=== PATIENT | female | born 1935 | race Caucasian/White ===

== ENCOUNTER 2017-07-07 09:24 | Emergency (ER) | payer MEDICARE, OTHER ==
[2017-07-07] MEDS ORDERED: Adacel (T-DAP) 0.5 ML VIAL ONE (09:51)
--- NOTE | 2017-07-07 11:08 | RAD ---
LEFT KNEE 4 VIEWS: Date: 07/07/17 HISTORY: Fall. COMPARISON: None. FINDINGS: Constrained left knee arthroplasty in place. The proximal femoral stem and distal tibial stem are not well evaluated. IMPRESSION: No evidence for hardware failure, although the proximal femoral stem and distal tibial stem are not w ell interrogated. POS: OFF
== END 2017-07-07 11:40 | disposition home or self-care (01) ==
LOC: ERS 09:24
DX: S81.012A Laceration without foreign body, left knee, initial encounter (principal); Z79.899 Other long term (current) drug therapy; Z79.01 Long term (current) use of anticoagulants; Z23 Encounter for immunization; W01.0XXA Fall on same level from slipping, tripping and stumbling without subsequent striking against object, initial encounter
CPT/HCPCS: 90471; 90715

== ENCOUNTER 2018-11-02 10:11 | Inpatient (IN) | payer MEDICARE, OTHER ==
[2018-11-02 10:48] LABS: INR-International Normal Ratio 1.6; PTT 33.3 SEC (22.9-36.1); Prothrombin Time 19.2 SEC (12.0-14.7)
[2018-11-02 10:49] LABS: #Basophils 0.1 thou/uL (0.0-0.2); #Eosinphils 0.2 thou/uL (0.0-0.7); #Lymphocytes 1.1 thou/uL (1.20-3.40); #Monocytes 0.4 thou/uL (0.11-0.59); #Neutrophils 3.6 thou/uL (1.40-6.50); %Basophils 1.1 % (0.0-1.0); %Eosinophils 3.1 % (0.0-10.0); %Lymphocytes 20.6 % (21.0-51.0); %Monocytes 7.9 % (0.0-10.0); %Neutrophils 67.4 % (42.0-75.0); Hemoglobin 7.4 g/dL (12.0-16.0); Mean Corpuscular HGB CONC 31.7 g/dL (32.0-36.0); Mean Corpuscular Hemoglobin 25.2 pg (27.0-31.0); Mean Corpuscular Volume 79.5 fL (78.0-98.0); Mean Platelet Volume 8.3 fL (7.4-10.4); Platelet Count 347 thou/uL (130-400); RBC Distribution Width 15.3 % (11.5-14.5); Red Blood Cell (RBC) Count 2.91 mill/uL (4.20-5.40); White Blood Cell (WBC) Count 5.3 thou/uL (4.8-10.8)
[2018-11-02 11:01] LABS: ALT (SGPT) 7 U/L (8-55); AST (SGOT) 15 U/L (5-34); Alkaline Phosphatase 69 U/L (40-150); Anion Gap 14 mmol/L (10-20); BUN (Urea Nitrogen) 22 mg/dL (9.8-20.1); Bilirubin, Total 0.4 mg/dL (0.2-1.2); Calc. Creatinine Clearance 0 mL/min (70-130); Calcium 9.7 mg/dL (7.8-10.44); Carbon Dioxide 22 mmol/L (23-31); Chloride 103 mmol/L (98-107); Estimated GFR-MDRD 42; Globulin 2.9 g/dL (2.4-3.5); Glucose 140 mg/dL (83-110); Potassium 4.3 mmol/L (3.5-5.1); Protein, Total 6.9 g/dL (6.0-8.3); Sodium 135 mmol/L (136-145)
[2018-11-02 11:02] LABS: Hypochromia SLIGHT = 6-15 cells (100X) (0-5/hpf); MDiff Complete? YES; Microcytosis SLIGHT = 6-15 cells (100X) (0-5/hpf); Platelet Morphology Comment Appears Adequate; Polychromasia SLIGHT = 2-3 cells (100X) (0-2/hpf)
--- NOTE | 2018-11-02 13:38 | HP ---
PRIMARY CARE PHYSICIAN: Ric Hayes MD Referred to [facility] by [facility] for symptomatic anemia. For the past couple of weeks, the patient has been dizzy and lightheaded. At times, she seemed to be going to pass out. Family states she almost fainted a couple of times while on the commode. There is no history of melena. No history of blood in her stools. No history of hematemesis. She is on chronic anticoagulations. She is ambulatory with a walker. 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 She has had recurrent deep vein thromboses, and has had inferior vena cava filter put in 1996, 2000 and 2009. She is on chronic anticoagulation. She has history of asthma and edema. CURRENT MEDICATIONS: 1. Albuterol 1 or 2 puffs before meals. 2. Tessalon Perles 100 mg p.o. q.8 hours p.r.n. 3. Spironolactone 25 mg p.o. t.i.d. 4. Warfarin 5 to 7 mg once a day in the morning. 5. Levothyroxine 75 mcg a day. 6. Prilosec OTC 20 mg a day. 7. MiraLAX 17 g in water at bedtime. 8. Some other [id number] medicines. ALLERGIES: CASEY, CODEINE, MORPHINE, AND SULFA. SHE HAD NEAR HEPATIC FAILURE FROM A DRUG CALLED AXID. PAST SURGICAL HISTORY: She has had hysterectomy, cholecystectomy, left total knee replacement, right total hip replacement surgery x3, and the aforementioned IVC filters. FAMILY HISTORY: Mother and father of old age. They both had type 2 diabetes late in life and the father had coronary artery disease. SOCIAL HISTORY: She is , at bedside, DNAR status, confirmed with him. She has a medical directive, he is the power of terrazzo grinder. No tobacco. No alcohol. REVIEW OF SYSTEMS: GENERAL: No fever or chills. EYES: She has cataracts, gives no specific complaints. EAR, NOSE, AND THROAT: No history of ear pain or bleeding or trouble swallowing. CARDIAC: No history of chest pain, orthopnea or paroxysmal nocturnal dyspnea. RESPIRATIONS: She has mild cough, especially when eating. No wheezing. GASTROINTESTINAL: No nausea, vomiting, abdominal pain, diarrhea or melena. GENITOURINARY: No hematuria or dysuria. MUSCULOSKELETAL: Occasional swelling in her legs, mild. Takes spironolactone for same. No muscle complaints. NEUROLOGICAL: Hemianesthesia on the right, aphasia. PSYCHIATRIC: No anxiety or depression. SKIN: Easy bruising. No rash. HEME/LYMPH: No tender or swollen lymph nodes noted by the family. PHYSICAL EXAMINATION: GENERAL: She is alert, pleasant lady, unable to understand or to express herself. VITAL SIGNS: Blood pressure 134/60, pulse 69, respirations 20, and temperature 97.8. HEAD, EYES, EARS, NOSE, AND THROAT: Pupils equal, round with cataracts, reactive. Extraocular movements grossly intact. Tympanic membranes clear. Nose clear. Oral mucous membranes are damp. NECK: Supple. No jugular venous distention, adenopathy or thyromegaly. CHEST: Clear to auscultation and percussion. HEART: Regular rate and rhythm. First and second heart sounds are clear. There are no appreciated murmurs or gallops. ABDOMEN: Soft. Bowel sounds are normal. No hepatosplenomegaly. No masses. No rebound. Bowel sounds present. EXTREMITIES: Trace edema. No cyanosis or clubbing. SKIN: Some minor ecchymoses on her arms. No rash. PULSES: Carotid, radial, femoral, and dorsalis pedis pulses intact and symmetric. HEME/LYMPH: No tender or swollen lymph nodes in axilla, inguinal or cervical area. NEUROLOGICAL: Cranial nerves 2 through 12 are intact, aphasic. Deep tendon reflexes symmetric. Sensation decreased on the right compared to the left. Toes downgoing. DIAGNOSTIC DATA: Chest x-ray, none available. I have ordered one. EKG, regular sinus rhythm, poor R wave progression in the precordial leads, otherwise normal, reviewed by me. LABORATORY DATA: INR is only 1.6. Comp metabolic profile; sodium 135, potassium 4.3, BUN 22, creatinine 1.23, and blood sugar 140. Liver function test unremarkable. CBC; hemoglobin in the outside office 7.1, hemoglobin here 7.4. The MCH and MCHC are low consistent with iron deficiency. Platelet count 247,000. ADMITTING DIAGNOSES: Anemia, symptomatic, chronic anticoagulation; recurrent deep vein thrombosis; post cerebrovascular accident; aphasic; edema. PLAN: 1. Serial hemoglobins q.6 hours. 2. Transfuse for hemoglobin less than 7. Emergency room physician has already started transfusion with a unit of blood at this time. 3. Protonix IV. 4. GI consult for possible endoscopy. The family has expressed some aversion to actually doing this, but I think it would be valuable to have Gastroenterology talk with them. For the time being, I am holding the Coumadin. Daily PT/INR, iron, iron binding capacity, ferritin, and vitamin B12 levels have been ordered. 5. Patient will require at least two overnights. severe anemia, anticoagulation , etc requires more than simple transfusion and outpatient [facility]. Job ID: [id number] [facility]
[2018-11-02] MEDS ORDERED: Ondansetron ODT 4 MG TAB PO PRN (13:58)
[2018-11-02] MEDS ORDERED: Acetaminophen 325 MG TAB PO PRN (13:58)
[2018-11-02] MEDS ORDERED: Zolpidem Tartrate 5 MG TAB PO PRN (13:58)
[2018-11-02] MEDS ORDERED: Sodium Chloride 0.9% (PF) 10 ML VIAL FS PRN (14:23)
[2018-11-02] MEDS ORDERED: Pantoprazole 40 MG VIAL IVP SCH (14:30)
--- NOTE | 2018-11-02 16:24 | RAD ---
RADIOGRAPH CHEST 1 VIEW: 11/02/18 HISTORY: 83-year-old female with anemia. FINDINGS: The thoracic aorta is tortuous and ectatic. There is no evidence of air space density, pneumothorax, or pulmonary edema. The lateral costophrenic angles are sharp. There is heterogeneous attenuation o f the retrocardiac portion of the left lower chest. IMPRESSION: 1) No acute pulmonary findings. 2) Ectasia of thoracic aorta. 3) Questionable hiatal hernia. jn [] POS: C
[2018-11-02 16:34] LABS: Iron Binding Capacity, Total 331 mcg/dL (265-497)
[2018-11-02 16:35] LABS: Iron 20 ug/dL (50-170)
[2018-11-02 16:54] LABS: Ferritin 13.65 ng/mL (10-291); Free Thyroxine Index 2.44 (1.4-3.1); T4 7.2 ug/dL (4.87-11.72); Thyroid Stimulating Hormone 1.3914 uIU/mL (0.35-4.94)
[2018-11-02 19:38] VITALS: BMI 35.0
[2018-11-02] MEDS: Sodium Chloride 0.9% 1,000 ML IV SCH (20:52)
[2018-11-03 00:02] LABS: #Basophils 0.1 thou/uL (0.0-0.2); #Eosinphils 0.2 thou/uL (0.0-0.7); #Lymphocytes 1.5 thou/uL (1.20-3.40); #Monocytes 0.8 thou/uL (0.11-0.59); #Neutrophils 3.9 thou/uL (1.40-6.50); %Basophils 0.8 % (0.0-1.0); %Eosinophils 3.3 % (0.0-10.0); %Lymphocytes 23.1 % (21.0-51.0); %Neutrophils 60.9 % (42.0-75.0); Hemoglobin 8.6 g/dL (12.0-16.0); Mean Corpuscular HGB CONC 31.3 g/dL (32.0-36.0); Mean Corpuscular Hemoglobin 25.5 pg (27.0-31.0); Mean Corpuscular Volume 81.6 fL (78.0-98.0); Mean Platelet Volume 8.1 fL (7.4-10.4); Platelet Count 323 thou/uL (130-400); Red Blood Cell (RBC) Count 3.36 mill/uL (4.20-5.40); White Blood Cell (WBC) Count 6.5 thou/uL (4.8-10.8)
--- NOTE | 2018-11-03 00:44 | CON ---
DATE OF CONSULTATION: 11/02/2018 REASON FOR CONSULTATION: Symptomatic anemia. CONSULTING PHYSICIAN: Teresa Mckinney MD. HISTORY OF PRESENT ILLNESS: The patient is an 83-year-old female with past medical history of recurrent DVT on anticoagulation, asthma, and a cerebral vascular accident in 2006 with transient right-sided weakness as well as apraxia, aphasia and right-sided hemianesthesia presenting with complaints of weakness. She states that she was in her usual state of health until approximately 2 weeks ago when she began to experience increased weakness primarily with exertion as well as increased dyspnea on exertion, being unable to traverse a room without having to stop and rest on her walker. Per family, they also state that she had a presyncopal event while defecating on the commode, but no overt loss of consciousness or passing out. Currently, she denies any nausea, vomiting, fevers, chills, hematemesis, melena, hematochezia, weight loss, odynophagia, diarrhea, or constipation. She does endorse some mild dysphagia primarily with ingestion of pills, but otherwise has been able to consume both solid and liquid foods without relative difficulty. REVIEW OF SYSTEMS: A 10-category review of systems was obtained with all responses negative except for the pertinent positives as listed in HPI. PAST MEDICAL HISTORY: As per HPI. PAST SURGICAL HISTORY: Hysterectomy, cholecystectomy, left total knee replacement, right total hip replacement x3, and IVC filter placement x3. FAMILY HISTORY: Denies any GI malignancies. No history of colon polyps or colon cancer. SOCIAL HISTORY: Denies any tobacco, alcohol, or illicit drug use. OUTPATIENT MEDICATIONS: Reviewed. ALLERGIES: CASEY, CODEINE, MORPHINE, SULFA AND AXID. PHYSICAL EXAMINATION: VITAL SIGNS: Temperature 98, pulse 74, blood pressure 122/59, respiratory rate 16, saturating 100% on room air. GENERAL: The patient was sitting in a chair at bedside, in no acute distress. Alert and oriented, although sensorium questions were difficult due to the patient's existing aphasia, but she was able to nod her head both affirmatively and negatively appropriately. HEENT: Normocephalic, atraumatic. NECK: Supple. No JVD or scleral icterus noted. CARDIOVASCULAR: Regular rate and rhythm with no discernible murmurs, gallops, or rubs. RESPIRATORY: Clear to auscultation bilaterally with no discernible wheezes or rales. ABDOMEN: Normoactive bowel sounds. Soft, nontender, nondistended. EXTREMITIES: No cyanosis, clubbing, or edema. LABORATORY DATA: CBC with a white blood cell count of 5.3, hemoglobin 7.4, hematocrit 23.2. INR 1.6. Platelets 347. Chemistry with a sodium of 135, potassium 4.3, chloride 103, CO2 of 22, BUN 22, creatinine 1.23, glucose 140, AST 15, ALT 7, alkaline phosphatase 69, total bilirubin 0.4, albumin 4.0, iron 20, ferritin 13.65, and TIBC of 331. IMAGING DATA: Chest x-ray obtained on November 02, 2018, showed no acute pulmonary findings, but did show ectasia of the thoracic aorta and a questionable hiatal hernia. ASSESSMENT AND PLAN: The patient is an 83-year-old female with past medical history of recurrent deep venous thrombosis on chronic anticoagulation, asthma, and a cerebrovascular accident in 2005 resulting in transient right-sided weakness, aphasia, apraxia and right-sided tomasa anesthesia presenting with symptomatic anemia. Symptomatic anemia. The patient is presenting with a relatively acute onset of increased weakness and dyspnea on exertion with decreased ability to ambulate around her house over the last 2 weeks. Upon evaluation within the ER today, she was noted to have a significantly decreased hemoglobin and hematocrit, but denies any evidence of overt GI bleeding or bleeding in general. Given her history of anticoagulation, this could potentially lead to bleeding from any mucosal surface, although upon conferring with the patient's , she does have a history of a gastric ulceration in the past that was performed "many years ago" which could be potentially contributing to her current clinical situation. At this point, the differential could include esophagitis, gastritis, peptic ulcer disease, arteriovenous malformation, Dieulafoy lesion, irritable bowel irritable bowel disease (less likely) and/or gastrointestinal neoplasm (less likely). Her last colonoscopy was around in 2009 with only findings of diverticulosis per patient's . RECOMMENDATIONS: 1. We would continue to trend H and H and transfuse as necessary to maintain an H and H of 7/. 2. Continue to monitor clinically for signs of active gastrointestinal bleeding. 3. Please make the patient n.p.o. at midnight in preparation for upper endoscopy tomorrow. A colonoscopy was offered to the patient, but she is declining to proceed with that particular modality at this time due to significant adverse effects in the past. 4. We will continue to follow. Please call with any questions. Job ID: [id number]
[2018-11-03] MEDS: Sodium Chloride 0.9% 1,000 ML IV SCH (01:45)
[2018-11-03 06:26] LABS: #Eosinphils 0.2 thou/uL (0.0-0.7); #Lymphocytes 1.1 thou/uL (1.20-3.40); #Monocytes 0.6 thou/uL (0.11-0.59); %Basophils 0.4 % (0.0-1.0); %Eosinophils 3.4 % (0.0-10.0); %Monocytes 10.1 % (0.0-10.0); %Neutrophils 67.2 % (42.0-75.0); Hemoglobin 8.3 g/dL (12.0-16.0); Mean Corpuscular HGB CONC 32.5 g/dL (32.0-36.0); Mean Corpuscular Hemoglobin 26.3 pg (27.0-31.0); Mean Corpuscular Volume 80.9 fL (78.0-98.0); Mean Platelet Volume 8.1 fL (7.4-10.4); Platelet Count 313 thou/uL (130-400); RBC Distribution Width 15.2 % (11.5-14.5); Red Blood Cell (RBC) Count 3.16 mill/uL (4.20-5.40); White Blood Cell (WBC) Count 5.9 thou/uL (4.8-10.8)
[2018-11-03 06:34] LABS: INR-International Normal Ratio 1.6; Prothrombin Time 19.3 SEC (12.0-14.7)
[2018-11-03 06:46] LABS: Anion Gap 13 mmol/L (10-20); BUN (Urea Nitrogen) 15 mg/dL (9.8-20.1); Calc. Creatinine Clearance 68 mL/min (70-130); Calcium 9.3 mg/dL (7.8-10.44); Carbon Dioxide 20 mmol/L (23-31); Chloride 108 mmol/L (98-107); Estimated GFR-MDRD 52; Glucose 111 mg/dL (83-110); Potassium 4.2 mmol/L (3.5-5.1); Sodium 137 mmol/L (136-145)
[2018-11-03] MEDS ORDERED: Pantoprazole 40 MG VIAL IVP SCH (09:00)
[2018-11-03] MEDS ORDERED: Ondansetron HCl/PF 4 MG/2 ML Vial IVP PRN (10:08)
[2018-11-03 12:42] LABS: #Eosinphils 0.1 thou/uL (0.0-0.7); #Lymphocytes 1.1 thou/uL (1.20-3.40); #Monocytes 0.6 thou/uL (0.11-0.59); #Neutrophils 4.1 thou/uL (1.40-6.50); %Basophils 0.8 % (0.0-1.0); %Eosinophils 1.9 % (0.0-10.0); %Lymphocytes 18.7 % (21.0-51.0); %Monocytes 10.7 % (0.0-10.0); Hemoglobin 9.3 g/dL (12.0-16.0); Mean Corpuscular HGB CONC 31.6 g/dL (32.0-36.0); Mean Corpuscular Hemoglobin 25.8 pg (27.0-31.0); Mean Corpuscular Volume 81.7 fL (78.0-98.0); Mean Platelet Volume 7.9 fL (7.4-10.4); Platelet Count 340 thou/uL (130-400); RBC Distribution Width 15.3 % (11.5-14.5); Red Blood Cell (RBC) Count 3.59 mill/uL (4.20-5.40)
--- NOTE | 2018-11-03 15:12 | PDOC.PN ---
- Subjective Encounter Start Date: 11/03/18 Encounter Start Time: 15:10 Ms. Paul was seen today in follow-up of pre-syncope. She does not have any complaints now. She wants to go home. She denies abdominal pain. - Objective Resuscitation Status - Order Detail: 11/02/18 12:35 Resuscitation Status Routine Resuscitation Status: DNAR: NO Resuscitation Discussed with: , has medical directive MAR Reviewed: Yes Vital Signs & Weight: Vital Signs (12 hours) Temp Pulse Resp BP BP Pulse Ox 11/03/18 10:45 97.5 F L 71 16 146/76 H 97 11/03/18 08:00 98.0 F 66 18 114/63 93 L 11/03/18 04:00 98.1 F 73 18 115/55 L 95 Weight Weight 223 lb 12.8 oz Most Recent Monitor Data Heart Rate from ECG 70 NIBP 144/74 I&O: 11/02/18 11/03/18 11/04/18 06:59 06:59 06:59 Intake Total 350 1520 Balance 350 1520 Result Diagrams: 11/03/18 12:35 11/03/18 06:13 Phys Exam - Physical Examination HEENT: PERRLA Respiratory: no wheezing, no rales, no rhonchi, clear to auscultation bilateral Cardiovascular: RRR, no significant murmur, no rub Gastrointestinal: soft, non-tender, no distention, positive bowel sounds Dx/Plan (1) Pre-syncope Status: Acute (2) DVT (deep venous thrombosis) Code(s): I82.409 - ACUTE EMBOLISM AND THOMBOS UNSP DEEP VN UNSP LOWER EXTREMITY Status: Chronic (3) CVA (cerebral vascular accident) Code(s): I63.9 - CEREBRAL INFARCTION, UNSPECIFIED Status: Chronic (4) Normocytic anemia Code(s): D64.9 - ANEMIA, UNSPECIFIED Status: Acute - Plan * Presyncope-this is presumed to be due to acute blood loss anemia- She had an EGD which did not idenitfy a source for bleed. She does not want a Colonoscopy. She is asking to go home * Discussed with Dr. Arenas. Can discharge home today with close outpatient follow-up. Will Hold coumadin for 48 hours from today * Stable for discharge home.
[2018-11-03 16:15] VITALS: BP 129/67; TEMP 97.8
--- NOTE | 2018-11-03 16:30 | OP ---
DATE OF PROCEDURE: 11/03/2018 INDICATION FOR PROCEDURE: Iron deficiency anemia, symptomatic anemia. PROCEDURE: Esophagogastroduodenoscopy with biopsy. DESCRIPTION OF PROCEDURE: After the risks and benefits of the procedure were explained to the patient including risks of bleeding, infection, perforation, reactions to anesthesia, aspiration and/or pain, informed consent was obtained via the patient's medical power of rn utilization management um (the patient's ) due to the patient's expressive aphasia. The patient was then taken to the endoscopy suite, where deep sedation was administered via propofol and anesthesia support. Once adequate sedation was achieved, the standard gastroscope was introduced into the mouth with intubation of the esophagus, stomach, and the proximal small intestine with the findings listed below. The patient tolerated the procedure well with no immediate perioperative complications. Upon conclusion of the procedure, all equipment was removed from the patient and she was transferred to PACU in satisfactory condition. FINDINGS: Esophagus: Normal-appearing mucosa was seen in the proximal, mid, and distal esophagus. The diaphragmatic pinch was seen at 44 cm while the GE junction was well seen at 35 cm denoting a 9 cm hiatal hernia. There were 3 linear areas of increased mucosal erythema, but no ulcerations seen consistent with Osvaldo ulcers. Otherwise, there was no evidence of erosions, ulcerations, mass, lesions, or active/recent bleeding. Stomach: Normal-appearing mucosa was seen in the gastric cardia, fundus, antrum, and incisura. Multiple kebede-colored polyps measuring between 2 mm to 6 mm in size were seen in the gastric body and along the greater curvature consistent with fundic gland polyps. Multiple biopsies were taken from these polyps as part of a vendor representatives sample to confirm the diagnosis. Otherwise, there was no evidence of erosions, ulcerations, mass, lesions, or active/recent bleeding. On gastric retroflexion, the large hiatal hernia was visualized again with 3 areas of linear erythema, but no evidence of overt ulceration or bleeding. Duodenum: Normal-appearing mucosa was seen in both the duodenal bulb and second portion of the duodenum. There was no evidence of erosions, ulcerations, mass, lesions, or active/recent bleeding. IMPRESSION: 1. Large hiatal hernia (9 cm) with 3 areas of linear erythema, but no evidence of Osvaldo ulcerations (based on this finding, this is likely not the source of her iron deficiency anemia). 2. Multiple kebede-colored polyps seen in the gastric body and extending into the greater curvature consistent with fundic gland polyps, and chronic acid suppression. 3. No etiology for the patient's anemia was seen during this examination. RECOMMENDATIONS: 1. We would continue to trend H and H and transfuse as necessary to maintain H and H of 12/24. 2. Continue to monitor clinically for signs of active GI bleeding. 3. Given the negative findings on the upper endoscopy today, I would normally recommend colonoscopy for further evaluation. However, given the patient's extreme reluctance to proceed with this modality, the patient could ultimately be discharged with followup in the outpatient clinic and a capsule endoscopy performed at that time for further evaluation. 4. Given her advanced age, I would consider other possible causes for iron deficiency anemia other than the GI origin. Given the patient is reluctant to proceed with colonoscopy and negative upper endoscopy findings today, we will sign off with the patient to follow up in the GI clinic if needed for capsule endoscopy. Please call with any additional questions. Job ID: [id number]
[2018-11-03] MEDS ORDERED: Albuterol Sulfate 2.5 mg/3 ml Neb NEB SCH (21:00)
--- NOTE | 2018-11-04 04:39 | DIS ---
DATE OF ADMISSION: 11/02/2018 DATE OF DISCHARGE: 11/03/2018 PRIMARY CARE PHYSICIAN: Ric Hayes MD. DISCHARGE DISPOSITION: Home. PRIMARY DISCHARGE DIAGNOSES: 1. Presyncope. 2. Normocytic anemia. 3. Cerebrovascular accident. 4. History of deep venous thrombosis, on chronic anticoagulation. DISCHARGE MEDICATIONS: Include; 1. Protonix 40 mg p.o. daily. 2. She is to continue warfarin 5 mg daily, but to restart this on November 05. Continue; 1. Spironolactone 25 mg t.i.d. 2. Levothyroxine 75 mcg p.o. daily. 3. Hyoscyamine 0.125 mg sublingual p.r.n. 4. Ventolin inhaler at bedtime. PROCEDURES DONE DURING THE ADMISSION: The patient had an EGD in which there is noted a gastric polyp as well as a hiatal hernia. CODE STATUS: DNAR. ALLERGIES: CODEINE, FEXOFENADINE, MORPHINE, NIZATIDINE, AND SULFA. HOSPITAL COURSE: Ms. Paul is a pleasant 83-year-old female who presented to the emergency room after she was feeling dizzy and lightheaded and felt like she could pass out. She was seen in her primary care physician's office and then was referred to our hospital for evaluation. In the ER, she was found to be anemic. Her hemoglobin was 7.4. She was given 2 units of blood and actually improved dramatically after that. She is on Coumadin on a regular basis due to a history of previous DVT. For this reason, there was concern that she could have had GI bleed. She was seen by Gastroenterology and underwent upper endoscopy, which showed a gastric polyp and a hiatal hernia, but no evidence of any ulceration. She refused to have a colonoscopy due to previous bad experience with this and a capsule study was suggested to be done as an outpatient. She was actually asking to go home the following day and Dr. Arenas agreed to going ahead and discharging the patient and to have close outpatient followup and to hold Coumadin for the next 48 hours and then to resume on November 05. Job ID: [id number]
== END 2018-11-03 16:31 | disposition home or self-care (01) | DRG 812 ==
LOC: ERS 10:11 → T4-B 11:57 → OBSVTOIN 13:58
PROVIDERS: ADMIT Internal Medicine; ATTEND Internal Medicine
PROC: 30233N1 Transfusion of Nonautologous Red Blood Cells into Peripheral Vein, Percutaneous Approach (ICD-10-PCS; 2018-11-02)
PROC: 0DB68ZX Excision of Stomach, Via Natural or Artificial Opening Endoscopic, Diagnostic (ICD-10-PCS; principal; 2018-11-03)
DX: D50.9 Iron deficiency anemia, unspecified (principal); I82.409 Acute embolism and thrombosis of unspecified deep veins of unspecified lower extremity; I69.351 Hemiplegia and hemiparesis following cerebral infarction affecting right dominant side; J45.909 Unspecified asthma, uncomplicated; K44.9 Diaphragmatic hernia without obstruction or gangrene; K31.7 Polyp of stomach and duodenum; Z96.652 Presence of left artificial knee joint; Z96.641 Presence of right artificial hip joint; Z79.01 Long term (current) use of anticoagulants; Z88.5 Allergy status to narcotic agent; Z88.2 Allergy status to sulfonamides; Z88.8 Allergy status to other drugs, medicaments and biological substances; Z90.710 Acquired absence of both cervix and uterus; Z90.49 Acquired absence of other specified parts of digestive tract
CPT/HCPCS: 36415; 36430; 71045; 80048; 80053; 82274; 82607; 82728; 83540; 83550; 84436; 84443; 84479; 84484; 85025; 85610; 85730; 86850; 86900; 86901; 93005; C9113; P9016

== ENCOUNTER 2019-06-18 10:33 | Emergency (ER) | payer MEDICARE, OTHER ==
[2019-06-18] MEDS ORDERED: Lorazepam 2 MG/ML VIAL ONE (11:28)
[2019-06-18] MEDS ORDERED: Fentanyl 100 MCG/2 ML VIAL ONE (11:28)
[2019-06-18] MEDS ORDERED: Ketorolac Tromethamine 30 MG/ML VIAL ONE (11:29)
[2019-06-18] MEDS ORDERED: Dexamethasone 4 mg/ml Vial ONE (11:29)
--- NOTE | 2019-06-18 12:52 | RAD ---
RADIOGRAPH LUMBAR SPINE 3 VIEWS: DATE: 06/18/2019 HISTORY: 83-year-old female with acute traumatic low back pain. COMPARISON: None available. FINDINGS: IVC filter. Multiple screws visualized at right total hip arthroplasty hardware. Five lumbar-type brenton tebrae. Mild left-convex curvature of lumbar spine. Severe facet DJD at mid and lower levels. Grade I anterolisthesis of L4 on L5 due to facet DJD. Multilevel mild and moderate disc space narrowing, gre atest at L2-3 with end plate sclerosis. Degenerative retrolisthesis of L2 on L3, and L3 on L4. Verteb ral body heights are maintained. Diffuse osteopenia. Vertebral body heights maintained. IMPRESSION: 1. No evidence of acute compression fracture. 2. Lumbar spondylosis with facet osteoarthrosis and degenerative disc disease. JN [] POS: OFF
== END 2019-06-18 13:09 | disposition home or self-care (01) ==
LOC: ERS 10:33
DX: S39.012A Strain of muscle, fascia and tendon of lower back, initial encounter (principal); X58.XXXA Exposure to other specified factors, initial encounter
CPT/HCPCS: 72100; 96374; 96375; J1100; J1885; J2060; J3010

== ENCOUNTER 2022-08-02 14:31 | Outpatient (CLI) | payer MEDICARE | END 2022-08-02 14:32 | disposition home or self-care (01) | LOC: BICMAMMO 14:31 | PROVIDERS: ATTEND Family Medicine | DX: M81.0 Age-related osteoporosis without current pathological fracture (principal); M85.851 Other specified disorders of bone density and structure, right thigh | CPT/HCPCS: 77080 ==

== ENCOUNTER 2023-03-07 14:08 | Inpatient (IN) | payer MEDICARE ==
[2023-03-07 15:11] LABS: Bacteria/HPF None Seen HPF (None Seen); Bilirubin Negative (Negative); Blood, Urine Negative (Negative); CAUTI Indications for Culture Alt mental st,lethar; Clarity Clear (Clear); Glucose, Urine (Dipstick) Normal (Negative); Ketone, Urine Negative (Negative); Leukocyte Negative Leu/uL (Negative); Nitrite Negative (Negative); Protein, Urine (Dipstick) Negative (Neg-Trace); RBC/HPF None Seen HPF (0-3); Specific Gravity, Urine 1.014 (1.002-1.036); Urobilinogen Normal mg/dL (Less than 2); WBC/HPF 0-3 HPF (0-3)
[2023-03-07 15:13] LABS: Urine Culture Reflex No No
[2023-03-07 16:20] LABS: #Basophils 0.1 thou/uL (0.0-0.2); #Eosinphils 0.2 thou/uL (0.0-0.7); #Monocytes 0.5 thou/uL (0.11-0.59); #Neutrophils 4.2 thou/uL (1.40-6.50); %Basophils 0.8 % (0.0-1.0); %Lymphocytes 20.7 % (21.0-51.0); %Monocytes 8.1 % (0.0-10.0); %Neutrophils 67.2 % (42.0-75.0); Hematocrit 42.2 % (36.0-47.0); Hemoglobin 14.2 g/dL (12.0-16.0); Mean Corpuscular HGB CONC 33.6 g/dL (32.0-36.0); Mean Corpuscular Hemoglobin 33.1 pg (27.0-31.0); Mean Corpuscular Volume 98.4 fl (78.0-98.0); Mean Platelet Volume 10.6 fL (7.4-10.4); Platelet Count 182 10x3/uL (130-400); RBC Distribution Width 13.7 % (11.5-14.5); Red Blood Cell (RBC) Count 4.29 mill/uL (4.20-5.40); White Blood Cell (WBC) Count 6.3 10x3/uL (4.8-10.8)
[2023-03-07 16:33] LABS: INR-International Normal Ratio 2.4; PTT 35.1 sec (22.9-36.1); Prothrombin Time 27.4 sec (12.0-14.7)
[2023-03-07 16:40] LABS: ALT (SGPT) 10 U/L (8-55); AST (SGOT) 19 U/L (5-34); Albumin 3.7 g/dL (3.4-4.8); Alkaline Phosphatase 101 U/L (40-110); Anion Gap 15 mmol/L (10-20); BUN (Urea Nitrogen) 15 mg/dL (9.8-20.1); Bilirubin, Total 0.5 mg/dL (0.2-1.2); Calc. Creatinine Clearance 0 mL/min (70-130); Calcium 9.5 mg/dL (7.8-10.44); Carbon Dioxide 25 mmol/L (23-31); Chloride 103 mmol/L (98-107); Estimated GFR 58; Globulin 3.3 g/dL (2.4-3.5); Glucose 178 mg/dL (83-110); Sodium 139 mmol/L (136-145)
[2023-03-07] MEDS ORDERED: Senokot S 8.6-50 MG TAB PO PRN (18:18)
[2023-03-07] MEDS ORDERED: Hyoscyamine SL 0.125 MG TAB PO PRN (18:22)
[2023-03-07] MEDS ORDERED: hydrALAZINE 20 MG/ML VIAL SLOW IVP PRN (18:42)
[2023-03-07] MEDS ORDERED: Warfarin Sodium 5 MG TAB PO SCH (19:45)
[2023-03-07] MEDS: Spironolactone 25 MG TAB PO SCH (21:00)
[2023-03-07] MEDS: Timolol 0.25% Ophth Soln 5 ml Bottle L EYE SCH (21:00)
[2023-03-07] MEDS: Latanoprost 0.005% Ophth Soln 2.5 ml Bottle EA EYE SCH (21:00)
[2023-03-07 21:08] VITALS: BMI 35.6
[2023-03-08 05:17] LABS: #Basophils 0.1 thou/uL (0.0-0.2); #Eosinphils 0.2 thou/uL (0.0-0.7); #Monocytes 0.6 thou/uL (0.11-0.59); #Neutrophils 4.5 thou/uL (1.40-6.50); %Basophils 0.8 % (0.0-1.0); %Eosinophils 2.7 % (0.0-10.0); %Lymphocytes 17.7 % (21.0-51.0); %Monocytes 8.8 % (0.0-10.0); %Neutrophils 69.8 % (42.0-75.0); Hematocrit 39.9 % (36.0-47.0); Hemoglobin 13.3 g/dL (12.0-16.0); Mean Corpuscular HGB CONC 33.3 g/dL (32.0-36.0); Mean Corpuscular Hemoglobin 32.5 pg (27.0-31.0); Mean Corpuscular Volume 97.6 fl (78.0-98.0); Mean Platelet Volume 10.8 fL (7.4-10.4); Platelet Count 178 10x3/uL (130-400); RBC Distribution Width 13.9 % (11.5-14.5); Red Blood Cell (RBC) Count 4.09 mill/uL (4.20-5.40); White Blood Cell (WBC) Count 6.4 10x3/uL (4.8-10.8)
[2023-03-08 05:30] LABS: INR-International Normal Ratio 2.3
[2023-03-08] MEDS: Levothyroxine Sodium 75 MCG TAB PO SCH (06:05)
[2023-03-08 07:32] LABS: Chloride 104 mmol/L (98-107); Potassium 3.9 mmol/L (3.5-5.1); Sodium 136 mmol/L (136-145)
[2023-03-08 07:33] LABS: Anion Gap 13 mmol/L (10-20); BUN (Urea Nitrogen) 16 mg/dL (9.8-20.1); Calc. Creatinine Clearance 54 mL/min (70-130); Calcium 9.4 mg/dL (7.8-10.44); Carbon Dioxide 23 mmol/L (23-31); Estimated GFR 47; Glucose 153 mg/dL (83-110)
[2023-03-08] MEDS: Spironolactone 25 MG TAB PO SCH ×3 (09:18→20:09)
[2023-03-08] MEDS: Allopurinol 300 MG TAB PO SCH (09:19)
[2023-03-08] MEDS: Timolol 0.25% Ophth Soln 5 ml Bottle L EYE SCH ×2 (09:19→20:10)
[2023-03-08] MEDS: Fluticasone Propionate Nasal Spray 16 gm Bottle NASAL SCH (09:19)
[2023-03-08] MEDS ORDERED: Aspirin 81 mg Enteric Coated Tablet PO SCH (12:00)
[2023-03-08] MEDS: Acetaminophen 325 MG TAB PO PRN ×2 (12:03→20:09)
[2023-03-08] MEDS ORDERED: Warfarin Sodium 5 MG TAB PO SCH (17:00)
[2023-03-08] MEDS: Warfarin Sodium 5 MG TAB PO SCH (18:15)
[2023-03-08] MEDS: Latanoprost 0.005% Ophth Soln 2.5 ml Bottle EA EYE SCH (20:10)
[2023-03-09 04:45] LABS: #Eosinphils 0.2 thou/uL (0.0-0.7); #Monocytes 0.5 thou/uL (0.11-0.59); %Basophils 0.7 % (0.0-1.0); %Eosinophils 3.6 % (0.0-10.0); %Lymphocytes 21.5 % (21.0-51.0); %Monocytes 8.4 % (0.0-10.0); %Neutrophils 65.6 % (42.0-75.0); Hematocrit 42.7 % (36.0-47.0); Hemoglobin 14.7 g/dL (12.0-16.0); Mean Corpuscular HGB CONC 34.4 g/dL (32.0-36.0); Mean Corpuscular Volume 95.7 fl (78.0-98.0); Mean Platelet Volume 10.5 fL (7.4-10.4); Platelet Count 162 10x3/uL (130-400); RBC Distribution Width 13.5 % (11.5-14.5); Red Blood Cell (RBC) Count 4.46 mill/uL (4.20-5.40); White Blood Cell (WBC) Count 6.1 10x3/uL (4.8-10.8)
[2023-03-09 05:00] LABS: INR-International Normal Ratio 2.5; Prothrombin Time 27.8 sec (12.0-14.7)
[2023-03-09 05:21] LABS: Anion Gap 14 mmol/L (10-20); BUN (Urea Nitrogen) 15 mg/dL (9.8-20.1); Calc. Creatinine Clearance 67 mL/min (70-130); Calcium 9.5 mg/dL (7.8-10.44); Carbon Dioxide 23 mmol/L (23-31); Chloride 101 mmol/L (98-107); Estimated GFR 61; Glucose 151 mg/dL (83-110); Potassium 3.7 mmol/L (3.5-5.1); Sodium 134 mmol/L (136-145)
[2023-03-09] MEDS: Levothyroxine Sodium 75 MCG TAB PO SCH (05:44)
[2023-03-09] MEDS: Allopurinol 300 MG TAB PO SCH (08:47)
[2023-03-09] MEDS: Aspirin 81 mg Enteric Coated Tablet PO SCH (08:47)
[2023-03-09] MEDS: Spironolactone 25 MG TAB PO SCH ×3 (08:47→20:05)
[2023-03-09] MEDS: Timolol 0.25% Ophth Soln 5 ml Bottle L EYE SCH ×2 (08:48→20:12)
[2023-03-09] MEDS: Fluticasone Propionate Nasal Spray 16 gm Bottle NASAL SCH (08:48)
[2023-03-09] MEDS: Warfarin Sodium 5 MG TAB PO SCH (17:26)
[2023-03-09] MEDS: Latanoprost 0.005% Ophth Soln 2.5 ml Bottle EA EYE SCH (20:06)
[2023-03-09] MEDS ORDERED: Polyethylene Glycol 3350 17 GM Packet PO SCH (21:00)
[2023-03-09] MEDS ORDERED: Atorvastatin Calcium 10 MG TAB PO SCH (21:00)
[2023-03-10] MEDS: Acetaminophen 325 MG TAB PO PRN ×2 (00:55→11:50)
[2023-03-10 04:38] LABS: INR-International Normal Ratio 2.8
[2023-03-10 04:51] LABS: Anion Gap 13 mmol/L (10-20); BUN (Urea Nitrogen) 19 mg/dL (9.8-20.1); Calc. Creatinine Clearance 52 mL/min (70-130); Calcium 9.5 mg/dL (7.8-10.44); Carbon Dioxide 23 mmol/L (23-31); Chloride 99 mmol/L (98-107); Estimated GFR 45; Glucose 175 mg/dL (83-110); Sodium 131 mmol/L (136-145)
[2023-03-10] MEDS: Levothyroxine Sodium 75 MCG TAB PO SCH (05:32)
[2023-03-10] MEDS ORDERED: metFORMIN XR 500 MG ER.TAB PO SCH (08:00)
[2023-03-10] MEDS: Spironolactone 25 MG TAB PO SCH ×2 (08:44→18:06)
[2023-03-10] MEDS: Aspirin 81 mg Enteric Coated Tablet PO SCH (08:44)
[2023-03-10] MEDS: Allopurinol 300 MG TAB PO SCH (08:45)
[2023-03-10] MEDS: Fluticasone Propionate Nasal Spray 16 gm Bottle NASAL SCH (08:45)
[2023-03-10] MEDS: Timolol 0.25% Ophth Soln 5 ml Bottle L EYE SCH (08:46)
[2023-03-10] MEDS ORDERED: Non-Formulary Item 1 EACH (Omeprazole [Omeprazole] 20 MG Capsule.Dr) PO SCH (09:00)
[2023-03-10] MEDS ORDERED: Non-Formulary Item 1 EACH (Metformin Hcl [Metformin Er Gastric] 500 MG Tabergr24h) PO SCH (09:00)
[2023-03-10 15:39] VITALS: BP 140/56; TEMP 98.5
[2023-03-10] MEDS ORDERED: Warfarin Sodium 2 MG TAB PO SCH (17:00)
[2023-03-11] MEDS ORDERED: FLU VACC QS2023(65UP)/MF59C/PF 60 MCG/0.5 ML SYRINGE IM ONE (09:00)
== END 2023-03-10 18:30 | DRG 57 ==
LOC: ERS 14:08 → SUATTDRO 14:08 → 2SE 17:33 → OBSVTOIN 17:33
PROVIDERS: ADMIT Family Medicine; ATTEND Internal Medicine Critical Care Medicine
PROC: 5A09357 Assistance with Respiratory Ventilation, Less than 24 Consecutive Hours, Continuous Positive Airway Pressure (ICD-10-PCS; principal; 2023-03-09)
DX: I69.351 Hemiplegia and hemiparesis following cerebral infarction affecting right dominant side (principal); E87.1 Hypo-osmolality and hyponatremia; I69.322 Dysarthria following cerebral infarction; Z96.641 Presence of right artificial hip joint; Z96.652 Presence of left artificial knee joint; J45.909 Unspecified asthma, uncomplicated; E03.9 Hypothyroidism, unspecified; I10 Essential (primary) hypertension; M10.9 Gout, unspecified; H40.9 Unspecified glaucoma; K21.9 Gastro-esophageal reflux disease without esophagitis; E11.9 Type 2 diabetes mellitus without complications; K59.00 Constipation, unspecified; Z66 Do not resuscitate; M19.90 Unspecified osteoarthritis, unspecified site; Z86.718 Personal history of other venous thrombosis and embolism; Z98.890 Other specified postprocedural states; Z90.710 Acquired absence of both cervix and uterus; Z88.5 Allergy status to narcotic agent; Z88.2 Allergy status to sulfonamides; Z88.8 Allergy status to other drugs, medicaments and biological substances; Z79.51 Long term (current) use of inhaled steroids; Z79.899 Other long term (current) drug therapy; Z79.01 Long term (current) use of anticoagulants
CPT/HCPCS: 36415; 70450; 70553; 71045; 80048; 80053; 81001; 83880; 85025; 85610; 85730; 93005